=== PATIENT | male | born 1945 | race Caucasian/White ===

== ENCOUNTER 2019-01-30 11:59 | Emergency (ER) | payer OTHER, MEDICARE ==
[~2019-01-30] VITALS: Ht 177.8 cm; Wt 70.3 kg
[2019-01-30 12:00] VITALS: BP_SYST 104
[2019-01-30] MEDS ORDERED: NACL 0.9% 1,000 ML IV ONE (12:15)
[2019-01-30 13:18] LABS: CALCIUM 11.7 mg/dL (8.4-11.0); CHLORIDE 100 mmol/L (98-107); CREATININE 1.61 mg/dL (0.55-1.30); GLUCOSE 140 mg/dL (70-99); POTASSIUM 3.7 mmol/L (3.5-5.1); SODIUM SERUM 131 mmol/L (136-145); UREA NITROGEN, BLOOD 20 mg/dL (8-21)
[2019-01-30 13:27] LABS: HEMATOCRIT 27.5 % (36-54); HEMOGLOBIN 9.1 g/dL (14.0-18.0); RED BLOOD CELL COUNT(AUTO) 2.75 MIL/uL (4.2-6.2); WHITE BLOOD COUNT (AUTO) 8.2 K/uL (4.8-10.8)
[2019-01-30 13:28] LABS: MEAN CORPUSCULAR HEMOGLOBIN 33 pg (27-31); MEAN CORPUSCULAR HGB CONC 33 % (32-36); MEAN CORPUSCULAR VOLUME 100 fL (79.0-98.0); PLATELET COUNT (AUTO) 119 K/uL (130-430)
[2019-01-30 13:29] LABS: BASOPHILS % (AUTO) 0.6 % (0.0-2.0); EOSINOPHILS % (AUTO) 5.7 % (0.0-4.0); LYMPHOCYTES # (AUTO) 0.8 K/uL (1.0-5.5); LYMPHOCYTES % (AUTO) 10.2 % (20.5-51.5); MONOCYTES # (AUTO) 0.8 K/uL (0.0-1.0); MONOCYTES % (AUTO) 10.1 % (1.7-9.3); NEUTROPHILS % (AUTO) 73.4 % (40.0-70.0)
[2019-01-30 13:30] LABS: EOSINOPHILS # (AUTO) 0.5 K/uL (0.0-0.4)
[2019-01-30 13:32] LABS: ALANINE AMINOTRANSFERASE 26 U/L (12-78); ALBUMIN 2.8 g/dL (3.4-4.8); ANION GAP 3 (5-15); ASPARTATE AMINOTRANSFERASE 30 U/L (10-37); TOTAL BILIRUBIN 0.5 mg/dL (0.0-1.0)
[2019-01-30 14:06] VITALS: BP_SYST 112
== END 2019-01-30 14:06 | disposition home or self-care (01) ==
LOC: SED 11:59
DX: E86.0 Dehydration (principal); N17.9 Acute kidney failure, unspecified; R53.1 Weakness; D64.9 Anemia, unspecified; D69.6 Thrombocytopenia, unspecified; Z86.718 Personal history of other venous thrombosis and embolism; Z85.09 Personal history of malignant neoplasm of other digestive organs
CPT/HCPCS: 36415; 70450; 71045; 80053; 83605; 85025; 87040; 96360; 99284; J7030